=== PATIENT | female | born 1965 | race Caucasian/White ===

== ENCOUNTER → 2017-08-22 | Outpatient (CLI) | payer OTHER | END | disposition home or self-care (01) | LOC: CFH 10:12 | PROVIDERS: ATTEND Specialist | DX: Z12.31 Encounter for screening mammogram for malignant neoplasm of breast (principal) | CPT/HCPCS: 77063; 77067 ==

== ENCOUNTER → 2019-05-21 | Outpatient (CLI) | payer OTHER | END | disposition home or self-care (01) | LOC: CFH 13:49 | PROVIDERS: ATTEND Specialist | DX: Z12.31 Encounter for screening mammogram for malignant neoplasm of breast (principal); N64.89 Other specified disorders of breast; Z98.82 Breast implant status | CPT/HCPCS: 77063; 77067 ==